=== PATIENT | male | born 1965 | race Two or more races ===

== ENCOUNTER 2023-10-09 22:13 | Emergency (ER) | payer OTHER ==
[~2023-10-09] VITALS: Ht 180.3 cm; Wt 81.6 kg
[2023-10-09] MEDS ORDERED: HYDROCODONE/APAP 5/325MG TABLET ONE (23:35)
[2023-10-09] MEDS: HYDROCODONE/APAP 5/325MG TABLET PO ONE (23:38)
[2023-10-10] MEDS ORDERED: HYDR-4303 PO (00:08)
[2023-10-10] MEDS ORDERED: ACET-2605 PO (00:08)
[2023-10-10] MEDS ORDERED: IBUP-1955 PO (00:08)
[2023-10-10 00:31] VITALS: BP 149/87; TEMP 99; O2SAT 98
== END 2023-10-10 00:32 | disposition home or self-care (01) ==
LOC: ER 22:20
DX: S82.841A Displaced bimalleolar fracture of right lower leg, initial encounter for closed fracture (principal); Z79.899 Other long term (current) drug therapy; W01.0XXA Fall on same level from slipping, tripping and stumbling without subsequent striking against object, initial encounter; Y93.89 Activity, other specified; Y92.89 Other specified places as the place of occurrence of the external cause; Y99.8 Other external cause status
CPT/HCPCS: 73610-TC